=== PATIENT | female | born 1990 | race Caucasian/White ===

== ENCOUNTER 2021-03-14 23:02 | Emergency (ER) | payer OTHER ==
[~2021-03-14] VITALS: Ht 165.1 cm; Wt 65.8 kg
[~2021-03-14 23:02] MED LIST: APAP500; DERMOPLAST SPRA56 ML; DOXYCYCLINE 10100 MG PO; IBUPROFEN 400400 M1; IBUPROFEN 800800 M1 PO; LANOLIN56 GM; MIRENA; PREDNISONE50 MG PO; PRENATAL MULTI1 EAC2; TUCKS MEDICATE1 EAC1
[2021-03-15 02:35] LABS: URINE BILIRUBIN NEGATIVE (Negative); URINE BLOOD NEGATIVE (Negative); URINE CLARITY CLEAR; URINE COLOR YELLOW; URINE GLUCOSE-RANDOM NEGATIVE (Negative); URINE LEUKOCYTES-REFLEX NEGATIVE (Negative); URINE NITRITE-REFLEX NEGATIVE (Negative); URINE PROTEIN TRACE (Negative); URINE UROBILINOGEN 0.2 E.U./dl (0.2-1.0)
[2021-03-15 02:37] LABS: URINE KETONES 3+ (Negative)
[2021-03-15 02:54] LABS: ABSOLUTE MONOCYTES 0.5 thou/uL (0.0-1.2); ABSOLUTE NEUTROPHILS 3.8 thou/uL (1.6-8.1); BASOPHILS 0.5 %; EOSINOPHILS 0.6 %; HEMATOCRIT 40.1 % (37.0-47.0); HEMOGLOBIN 13.6 gm/dL (12.0-15.0); LYMPHOCYTES 18.5 %; MCH 30.8 pg (26.0-34.0); MCV 90.6 fL (80.0-100.0); MONOCYTES 8.6 %; MPV 8.7 fl. (7.2-11.1); NUCLEATED RBCS 0 /100WBC; PLATELET COUNT* 187 thou/uL (150-400); POLYS 71.8 %; RBC 4.42 mil/uL (4.20-5.00); RDW-CV 12.2 % (10.5-14.5); WBC 5.3 thou/uL (4.0-11.0)
[2021-03-15 03:05] LABS: CALCIUM 8.1 mg/dL (8.5-10.1); CREATININE 0.7 mg/dL (0.6-1.3); POTASSIUM 3.9 mmol/L (3.5-5.1)
[2021-03-15 03:10] LABS: ALBUMIN 3.8 g/dL (3.4-5.0); TOTAL BILIRUBIN 0.3 mg/dL (<0.1-1.0); TOTAL PROTEIN 7.1 g/dL (6.4-8.2)
[2021-03-15] MEDS ORDERED: ACETAMINOPHEN-1 EAC2 PO (04:57)
[2021-03-15] MEDS ORDERED: AMOXICILLIN875 MG PO (04:57)
[2021-03-15] MEDS ORDERED: ZOFRAN ODT4 MG PO (04:57)
[2021-03-15 05:17] VITALS: BP 92/54
--- NOTE | 2021-03-16 12:09 | EKG ---
[place] [id number] ELECTROCARDIOGRAM REPORT Name: JOHN MIKE Room: [facility]#: [id number] Admission: 03/14/21 Attend Phys: Discharge: 03/15/21 Date of : 89 Date of Service: 03/15/21 0027 Report #: [id number] THIS REPORT FOR: //name// 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
== END 2021-03-15 05:19 | disposition home or self-care (01) ==
LOC: M.ERS 23:02
PROVIDERS: Personal Emergency Response Attendant
DX: J32.9 Chronic sinusitis, unspecified (principal); E86.0 Dehydration; R51.9 Headache, unspecified